=== PATIENT | female | born 1965 | race Caucasian/White ===

== ENCOUNTER 2022-12-02 09:49 | Day surgery (SDC) | payer BC ==
[2022-12-01 14:14] VITALS: BMI 22.3
[2022-12-02] MEDS ORDERED: PROPOFOL 200 MG/20 ML VIAL ONE (12:48)
[2022-12-02] MEDS ORDERED: Lidocaine 1% PF 5 ML VIAL ONE (12:48)
== END 2022-12-02 14:15 | disposition home or self-care (01) ==
LOC: SDC 09:49
PROVIDERS: ATTEND Internal Medicine Gastroenterology
PROC: 0DB88ZX Excision of Small Intestine, Via Natural or Artificial Opening Endoscopic, Diagnostic (ICD-10-PCS; principal; 2022-12-02)
PROC: 0DJD8ZZ Inspection of Lower Intestinal Tract, Via Natural or Artificial Opening Endoscopic (ICD-10-PCS; principal; 2022-12-02)
DX: Z12.11 Encounter for screening for malignant neoplasm of colon (principal); K64.8 Other hemorrhoids; K31.89 Other diseases of stomach and duodenum; Q40.8 Other specified congenital malformations of upper alimentary tract; Z88.6 Allergy status to analgesic agent; Z91.011 Allergy to milk products
CPT/HCPCS: 88305; J2704

== ENCOUNTER 2025-04-26 09:15 | Outpatient (CLI) | payer BC | END 2025-04-26 09:16 | disposition home or self-care (01) | LOC: BICMAMMO 09:15 | PROVIDERS: ATTEND Family Medicine | DX: Z78.0 Asymptomatic menopausal state (principal); M81.0 Age-related osteoporosis without current pathological fracture | CPT/HCPCS: 77080 ==